=== PATIENT | female | born 1965 | race Caucasian/White ===

== ENCOUNTER → 2018-03-08 | Outpatient (REF) | payer OTHER, BC ==
[2018-03-08 18:42] LABS: ALBUMIN 3.7 GM/DL (3.2-5.2); ALBUMIN/GLOBULIN RATIO 1.06 (1.00-1.93); ALKALINE PHOSPHATASE 75 U/L (45-117); ALT/SGPT 23 U/L (12-78); ANION GAP 6 MEQ/L (8-16); AST/SGOT 19 U/L (7-37); BILIRUBIN,TOTAL 0.4 MG/DL (0.2-1.0); BLOOD UREA NITROGEN 16 MG/DL (7-18); CARBON DIOXIDE LEVEL 29 MEQ/L (21-32); CHLORIDE LEVEL 106 MEQ/L (98-107); CHOLESTEROL LEVEL 206 MG/DL (<200); CHOLESTEROL RISK RATIO 3.169 (<5); CREATININE FOR GFR 0.84 MG/DL (0.55-1.30); GLOMERULAR FILTRATION RATE > 60.0 (>51); GLUCOSE, FASTING 93 MG/DL (70-100); HDL CHOLESTEROL 65 MG/DL (>40); LDL CHOLESTEROL 116.2 MG/DL (<100); NON-HDL-C 141 MG/DL; POTASSIUM SERUM 4.4 MEQ/L (3.5-5.1); SODIUM LEVEL 141 MEQ/L (136-145); TOTAL PROTEIN 7.2 GM/DL (6.4-8.2); TRIGLYCERIDES LEVEL 124 MG/DL (<150)
== END ==
LOC: M LAB REF 16:37
DX: E78.5 Hyperlipidemia, unspecified (principal); I10 Essential (primary) hypertension
CPT/HCPCS: 80053

== ENCOUNTER → 2018-09-13 | Outpatient (CLI) | payer OTHER | LOC: M WHC 13:09 | DX: Z12.31 Encounter for screening mammogram for malignant neoplasm of breast (principal) | CPT/HCPCS: 77067 ==

== ENCOUNTER → 2018-09-13 | Outpatient (CLI) | payer OTHER | LOC: M WUC 15:09 | DX: M48.07 Spinal stenosis, lumbosacral region (principal) | CPT/HCPCS: 72110 ==

== ENCOUNTER → 2019-03-09 | Outpatient (CLI) | payer OTHER ==
[~2019-03-09] MED LIST: BENA25TA4 PO; BENADRYL PO; DEPA500T2 PO; DYAZCA PO; LIPI20TA PO; MAPA500T17 PO; TOPROL XL PO; TYLE325T5 PO
[2019-03-09 11:32] LABS: ALBUMIN 3.6 GM/DL (3.2-5.2); ALT/SGPT 20 U/L (12-78); BILIRUBIN,TOTAL 0.5 MG/DL (0.2-1.0); BLOOD UREA NITROGEN 14 MG/DL (7-18); CALCIUM LEVEL 9.3 MG/DL (8.5-10.1); CARBON DIOXIDE LEVEL 30 MEQ/L (21-32); CHLORIDE LEVEL 105 MEQ/L (98-107); CHOLESTEROL LEVEL 249 MG/DL (<200); GLOMERULAR FILTRATION RATE > 60.0 (>51); GLUCOSE, FASTING 94 MG/DL (70-100); HDL CHOLESTEROL 64 MG/DL (>40); LDL CHOLESTEROL 155 MG/DL (<100); NON-HDL-C 185 MG/DL; SODIUM LEVEL 140 MEQ/L (136-145); TOTAL PROTEIN 6.7 GM/DL (6.4-8.2); TRIGLYCERIDES LEVEL 148 MG/DL (<150)
== END ==
LOC: M LRY 07:42
PROVIDERS: ATTEND Internal Medicine
DX: E78.5 Hyperlipidemia, unspecified (principal)

== ENCOUNTER 2019-04-06 13:09 | Emergency (ER) | payer OTHER ==
[2019-04-06] MEDS ORDERED: SUDA240T2 PO (13:28)
[2019-04-06] MEDS ORDERED: CLAR10CA3 PO (13:28)
--- NOTE | 2019-04-06 14:22 | REP ---
Right wrist four views: There is no fracture or dislocation. Mineralization is normal. There is trapezial metacarpal osteoarthritis at the thumb base. Joint spaces are otherwise unremarkable. There are no calcifications or foreign bodies. 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 Otherwise, negative right wrist Electronically Signed by Chas Francois MD 04/06/2019 02:13 P
[2019-04-06] MEDS ORDERED: NAPR-837 PO (15:12)
[2019-04-06] MEDS ORDERED: ROBA500T PO (15:12)
[2019-04-06 15:20] VITALS: BP 168/94
== END 2019-04-06 15:28 | disposition home or self-care (01) ==
LOC: M ED 13:09
DX: M54.12 Radiculopathy, cervical region (principal); M19.041 Primary osteoarthritis, right hand; E78.5 Hyperlipidemia, unspecified; E73.9 Lactose intolerance, unspecified; Z87.891 Personal history of nicotine dependence; Z79.899 Other long term (current) drug therapy; Z91.040 Latex allergy status

== ENCOUNTER 2019-06-23 09:12 | Observation (INO) | payer OTHER ==
[~2019-06-23] VITALS: Ht 160 cm; Wt 72.3 kg
[~2019-06-23 09:12] MED LIST changes: +CLAR10CA3 PO; +NAPR-837 PO; +ROBA500T PO; +SUDA240T2 PO
[2019-06-23] MEDS ORDERED: AMLO5TAB6 PO (09:55)
[2019-06-23] MEDS ORDERED: ESCI20TA PO (09:55)
[2019-06-23] MEDS ORDERED: ATOR1TAB19 PO (09:55)
[2019-06-23 09:56] LABS: BASO % 0.4 % (0.0-1.0); EOS # 0.1 10^3/uL (0.0-0.50); EOS % 1.4 % (0.0-3.0); HEMATOCRIT 40.4 % (36.0-47.0); HEMOGLOBIN 13.2 g/dl (12.0-15.5); LYMPH # 1.8 10^3/uL (1.5-4.5); MEAN CORPUSCULAR HEMOGLOBIN 30.2 pg (27.0-33.0); MEAN CORPUSCULAR HGB CONC 32.7 g/dl (32.0-36.5); MEAN CORPUSCULAR VOLUME 92.4 fl (80.0-96.0); MONO # 0.6 10^3/uL (0.0-0.8); MONO % 11.3 % (0.0-5.0); NEUTROPHILS # 2.6 10^3/uL (1.8-7.7); NEUTROPHILS % 51.5 % (36.0-66.0); PLATELET COUNT, AUTOMATED 275 10^3/uL (150-450); RED BLOOD COUNT 4.37 10^6/uL (4.00-5.40); WHITE BLOOD COUNT 5.1 10^3/uL (4.0-10.0)
--- NOTE | 2019-06-23 09:56 | REP ---
Clinical: Seizures . Comparison: 02/17/2014 . Findings: The ventricles, sulci, and cisterns are normal in position and appearance. Maciel-white differentiation is maintained. Mild chronic periventricular leukomalacia is again noted. No acute intracranial hemorrhage, mass/mass effect, pathology or trauma/injury. No evidence for acute infarction. No extra-axial fluid collection. Calvarium is intact. Paranasal sinuses and mastoid air cells are clear. Impression: Mild age-related changes. No evidence for acute intracranial pathology or trauma/injury. Electronically Signed by Nima Downing MD 06/23/2019 09:47 A
[2019-06-23] MEDS ORDERED: KETOROLAC 30 MG/ML VIAL (J1885) IV ONE (10:00)
[2019-06-23] MEDS ORDERED: ISOVUE-370 76% 100ML VIAL (Q9967) As Ordered ONE (10:01)
--- NOTE | 2019-06-23 10:02 | REP ---
Clinical: Acute chest pain . Comparison: 02/17/2014 . Findings: The mediastinum and cardiac silhouette are stable and within normal limits for portable technique. The lung kessler are clear without acute consolidation, effusion, or pneumothorax. Skeletal structures are intact. Impression: No acute cardiopulmonary process appreciated. Electronically Signed by Nima Downing MD 06/23/2019 09:54 A
[2019-06-23 10:35] LABS: BLOOD UREA NITROGEN 17 MG/DL (7-18); CALCIUM LEVEL 8.5 MG/DL (8.5-10.1); CARBON DIOXIDE LEVEL 25 MEQ/L (21-32); CHLORIDE LEVEL 106 MEQ/L (98-107); CK-MB VALUE MASS 1.7 NG/ML (<3.6); CPK CREATINE PHOSPHOKINASE 165 U/L (26-192); GLOMERULAR FILTRATION RATE > 60.0 (>51); GLUCOSE, FASTING 96 MG/DL (70-100); MB/CK RELATIVE INDEX 1.03 (< OR =4); POTASSIUM SERUM 3.6 MEQ/L (3.5-5.1); SODIUM LEVEL 140 MEQ/L (136-145); TROPONIN I < 0.02 NG/ML (< 0.10)
--- NOTE | 2019-06-23 10:41 | REP ---
Clinical: Acute chest pain. Technique: Axial contrast enhanced images from the thoracic inlet to the upper abdomen using 100 ml Isovue 370 intravenous contrast material with coronal and sagittal re-formations. Findings: Satisfactory enhancement of the pulmonary vasculature is achieved and no filling defects are identified to suggest pulmonary embolus. Thoracic aorta is normal caliber without aneurysm or dissection. Heart and pericardium are normal. Bilateral lung kessler are well aerated and without acute pulmonary parenchymal consolidation or or effusion. Trace left basilar atelectasis/dependent changes noted. No nodule or mass lesion. No pneumothorax. No adenopathy. Impression: No evidence for pulmonary embolus. Trace left basilar atelectasis/dependent changes noted. Electronically Signed by Nima Downing MD 06/23/2019 10:32 A
[2019-06-23] MEDS ORDERED: IPRATROPIUM 0.5MG/ALBUTEROL 2.5MG INH SOL UD 3ML (DUONEB)(J7620) NEB ONE (11:00)
[2019-06-23 11:25] LABS: ABG BASE EXCESS 1.4 (-2.0-2.0); ABG O2 SATURATION 99.8 % (95.0-99.0); ABG PARTIAL PRESSURE CO2 41.1 mmHg (35.0-45.0); ABG PARTIAL PRESSURE O2 167.8 mmHg (75.0-100.0); ABG STANDARD HCO3 25.8 MEQ/L (22.0-26.0); ABG TOTAL CO2 27.3 MEQ/L (22.0-29.0); ABG pH (ARTERIAL) 7.419 UNITS (7.350-7.450)
[2019-06-23] MEDS ORDERED: CETI10TA8 PO (11:52)
[2019-06-23] MEDS ORDERED: [UNRECOGNIZED DRUG - REMARK] PO (11:52)
[2019-06-23] MEDS ORDERED: DIPH25CA PO (11:52)
[2019-06-23] MEDS ORDERED: QC A650T3 PO (11:52)
[2019-06-23] MEDS ORDERED: ACETAMINOPHEN TAB 650MG DOSE (2X325MG) PO PRN (12:30)
--- NOTE | 2019-06-23 12:59 | HPEPDOC ---
General Date of Admission 06/23/2019 Date of Service: Jun 23, 2019 Chief Complaint The patient is a 54-year-old female who presented to the emergency room after she was found to have a potential seizure-like episode after trying to get urgent care for chest pain History of Present Illness Patient is a 54-year-old female with a past medical history of hypertension, dyslipidemia and anxiety who presented to the emergency room brought in by EMS, because of a seizure-like episode. 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 Patient had reported that she began to experience left-sided chest pain that prompted her to get further evaluation. Her coworker had decided to take her to the urgent care center. During transport, patient complained of worsening pain and then had possibly lost consciousness and possibly experience the seizure-like episode. There was no stool or bladder incontinence, no tongue biting. Patient is still reporting some chest pain described as on the left side of her chest under her armpit 6/10, sharp, continuous, worse with deep inspiration and alleviated mildly with pain medications received in the emergency room. Patient reported that she may have experience some nausea and sweating at the t edwige of the event. Currently patient denies vomiting, abdominal pain, constipation, diarrhea, discomfort with urination, fevers or chills within the last 2 weeks. Patient denies any change to her weight or her appetite. Home Medications Scheduled Acetaminophen (Acetaminophen 8 Hour) 650 Mg Tablet.er, 650 MG PO BID, (Reported) Amlodipine Besylate (Amlodipine Besylate) 5 Mg Tablet, 5 MG PO QHS, (Reported) Atorvastatin Calcium (Atorvastatin Calcium) 10 Mg Tablet, 10 MG PO QHS, (R eported) Cetirizine HCl (Cetirizine HCl) 10 Mg Tablet, 10 MG PO DAILY, (Reported) Diphenhydramine HCl (Diphenhydramine HCl) 25 Mg Capsule, 25 MG PO QHS, (Reported) Escitalopram Oxalate (Escitalopram Oxalate) 20 Mg Tablet, 20 MG PO QHS, (Reported) Phenylephrine HCl (Sinus Decongestant) 10 Mg Tablet, 10 MG PO DAILY, (Reported) Allergies Coded Allergies: lactose (Verified Allergy, Unknown, 04/06/19) latex (Verified Allergy, Unknown, 04/06/19) Past Medical History Medical History HTN DLP Anxiety Surgical History Hysterectomy section 2 Family History - Mother with a history of diverticulitis - Father with history of congestive heart failure and unknown cancer Social History - Denies the use of illicit drugs; socially drinks alcohol; patient is an ex- smoker - Denies recent travel or sick contacts - Lives with at [place] - Occupation; 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 Review of Systems Other systems 10 point review of systems complete, all negative otherwise stated in HPI Vital Signs - Vitals: BP 155/99, HR 76, RR 16, Sat 99%NC2L, Temp 98.1F - General: Lying in bed, No acute distress, Speaking in full sentences, AAOx3 - HEENT: NC, AT, PERRLA, EOMI - CVS: RRR, +S1S2 - Lungs: Fair air entry bilaterally, No appreciable wheezing / rales / rhonchi - Chest: Tenderness on light palpation on left mid-axilla line - Abdomen: Soft, Non-distended, Non-tender - Extremities: No lower extremity edema, No calf tenderness - Neuro: No focal motor or sensory deficit; 5/5 strength at upper / lower extremities bilaterally - Skin: No visible rashes, no visible shingle-like lesions noted along chest wall Laboratory Data Labs 24H Laboratory Tests 2 06/23/19 09:41: Immature Granulocyte % (Auto) 0.4, White Blood Count 5.1, Red Blood Count 4.37, Hemoglobin 13.2, Hematocrit 40.4, Mean Corpuscular Volume 92.4, Mean Corpuscular Hemoglobin 30.2, Mean Corpuscular Hemoglobin Concent 32.7, Red Cell Distribution Width 12.3, Platelet Count 275, Neutrophils (%) (Auto) 51.5, Lymphocytes (%) (Auto) 35.0, Monocytes (%) (Auto) 11.3H, Eosinophils (%) (Auto) 1.4, Basophils (%) (Auto) 0.4, Neutrophils # (Auto) 2.6, Lymphocytes # (Auto) 1.8, Monocytes # (Auto) 0.6, Eosinophils # (Auto) 0.1, Basophils # (Auto) 0.0, Nucleated Red Blood Cells % (auto) 0.0, Anion Gap 9, Glomerular Filtration Rate > 60.0, Blood Urea Nitrogen 17, Creatinine 1.00, Sodium Level 140, Potassium Level 3.6, Chloride Level 106, Carbon Dioxide Level 25, Calcium Level 8.5, Total Creatine Kinase 165, Creatine Kinase MB 1.7, Creatine Kinase MB Relative Index 1.03, Troponin I < 0.02, Thyroid Stimulating Hormone (TSH) 0.970 06/23/19 11:12: Blood Gas Bicarbonate Standard 25.8, Arterial Blood pH 7.419, Arterial Blood Partial Pressure CO2 41.1, Arterial Blood Partial Pressure O2 167.8H, Arterial Blood Total CO2 27.3, Arterial Blood HCO3 26.0, Arterial Blood Base Excess 1.4, Arterial Blood Oxygen Saturation 99.8H CBC/BMP Laboratory Tests 06/23/19 09:41 Red Blood Count 4.37, Mean Corpuscular Volume 92.4, Mean Corpuscular Hemoglobin 30.2, Mean Corpuscular Hemoglobin Concent 32.7, Red Cell Distribution Width 12.3, Neutrophils (%) (Auto) 51.5, Lymphocytes (%) (Auto) 35.0, Monocytes (%) (Auto) 11.3 H, Eosinophils (%) (Auto) 1.4, Basophils (%) (Auto) 0.4, Neutrophils # (Auto) 2.6, Lymphocytes # (Auto) 1.8, Monocytes # (Auto) 0.6, Eosinophils # (Auto) 0.1, Basophils # (Auto) 0.0, Calcium Level 8.5, Total Creatine Kinase 165 Plan / VTE VTE Prophylaxis Ordered?: Yes Plan Plan Possible seizure-like episode - Patient has a history of pseudoseizures in January 2014 - She had received extensive workup at that point which was all negative - Patient has not been on any antiepileptic medications - CT had 06/23: Mild age-related changes. No evidence for acute intracranial pathology or trauma/injury. - Will get MRI and EEG of brain - Will start PT tomorrow AM Left sided chest wall pain - likely 2/2 musculoskeletal etiology - Patient describes atypical chest pain - Physical reveals point tenderness along left midaxilla line - Troponin, first set, negative - EKG without any ischemic changes - CTA chest. 06/23: No evidence for pulmonary embolus. Trace left basilar atelectasis/dependent changes noted. - Will continue to trend troponin - c/w Telemetry monitoring - c/w Pain control HTN - Elevated blood pressure well emergency room - Will continue to monitor, will resume home medications DLP - c/w Atorvastatin Anxiety - c/w Escitalopram DVT prophylaxis - Will start ROGE Veliz MD Jun 23, 2019 12:59
[2019-06-23 15:15] VITALS: BP 165/90
[2019-06-23 15:36] LABS: CK-MB VALUE MASS 1.1 NG/ML (<3.6); CPK CREATINE PHOSPHOKINASE 149 U/L (26-192); MB/CK RELATIVE INDEX 0.74 (< OR =4); TROPONIN I < 0.02 NG/ML (< 0.10)
[2019-06-23] MEDS: NS 1,000 ML IV SCH (16:26)
[2019-06-23] MEDS: ENOXAPARIN 40 MG/0.4 ML SYRINGE (J1650) SC SCH (16:26)
--- NOTE | 2019-06-23 18:50 | ECHO ---
DATE OF PROCEDURE: 06/23/2019 AGE: 54 GENDER: Female HEIGHT: 63 inches WEIGHT: 165 pounds BODY SURFACE AREA: 1.78 m2 PATIENT LOCATION: Inpatient, PCU, room 3219 REFERRING PHYSICIAN: Hernando Fernandez MD INDICATION: Syncope. 2-D MEASUREMENTS: RV: 3.6 cm LV: 4.3 cm Septum: 1.1 cm Posterior wall: 1.1 cm Aortic root: 3.7 cm LA: 3.5 cm LVEF: 75% DOPPLER MEASUREMENTS: AV: 1.29 m/s LVOT: 1.16 m/s LVOT diameter: 2.4 cm MV-E: 69, A: 95, EA ratio: 0.7 Early mitral deceleration time: 250 ms E prime: 6.9, A prime: 10.5, E/E prime ratio: 10 PCWP: 14 mmHg PV: 0.8 m/s Pulmonary artery acceleration time: 130 ms PASP: 24 mmHg IVC: 1.8 cm COMMENTS Normal sinus rhythm without intraventricular conduction disturbance. M-mode and two-dimensional echocardiography was performed with pulsed, continuous wave, color flow and tissue Doppler studies. Normal left ventricular size, wall thickness and hyperkinetic wall motion. Normal left atrial size with Doppler evidence suggesting a degree of impaired LV diastolic function and current estimated mean left atrial pressure upper limits of normal. Normal right heart chamber sizes, wall motion and estimated pulmonary arterial pressure. Normal IVC size and collapse against an elevated central venous pressure. Normal-appearing aortic valvular apparatus without functional abnormality. Normal aortic dimensions. Marginally thickened mitral valvular apparatus with adequate leaflet excursion, but subtle posterior systolic buckling of the anterior leaflet with mild posteriorly directed insufficiency. No apparent intracardiac mass or pericardial effusion. From the apical projections we could not see an interatrial defect but from the subcostal four-chamber projections we were able to demonstrate a patent foremen ovale with trace left to right intra-atrial shunting. Unable to detect a structural or functional abnormality that would account for the patient's syncopal spell.
[2019-06-23 20:00] VITALS: BP 149/86
[2019-06-23] MEDS ORDERED: ESCITALOPRAM OXALATE 10 MG TAB (LEXAPRO) PO SCH (21:00)
[2019-06-23] MEDS ORDERED: amLODIPine 5 MG TAB PO SCH (21:00)
[2019-06-23] MEDS ORDERED: ATORVASTATIN 10 MG TAB PO SCH (21:00)
[2019-06-23 21:06] VITALS: BP 149/86
[2019-06-23 21:36] LABS: CK-MB VALUE MASS 1.1 NG/ML (<3.6); CPK CREATINE PHOSPHOKINASE 139 U/L (26-192); MB/CK RELATIVE INDEX 0.79 (< OR =4); TROPONIN I < 0.02 NG/ML (< 0.10)
[2019-06-23 23:59] VITALS: BP 146/74
[2019-06-24 04:00] VITALS: BP 147/86
[2019-06-24 04:44] LABS: BASO % 0.4 % (0.0-1.0); EOS % 0.9 % (0.0-3.0); HEMATOCRIT 38.1 % (36.0-47.0); HEMOGLOBIN 12.5 g/dl (12.0-15.5); LYMPH % 44.2 % (24.0-44.0); MEAN CORPUSCULAR HEMOGLOBIN 30.3 pg (27.0-33.0); MEAN CORPUSCULAR HGB CONC 32.8 g/dl (32.0-36.5); MEAN CORPUSCULAR VOLUME 92.3 fl (80.0-96.0); MONO # 0.5 10^3/uL (0.0-0.8); MONO % 10.4 % (0.0-5.0); NEUTROPHILS % 43.7 % (36.0-66.0); PLATELET COUNT, AUTOMATED 264 10^3/uL (150-450); RED BLOOD COUNT 4.13 10^6/uL (4.00-5.40); WHITE BLOOD COUNT 4.5 10^3/uL (4.0-10.0)
[2019-06-24 05:08] LABS: BLOOD UREA NITROGEN 12 MG/DL (7-18); CALCIUM LEVEL 8.9 MG/DL (8.5-10.1); CARBON DIOXIDE LEVEL 32 MEQ/L (21-32); CHLORIDE LEVEL 105 MEQ/L (98-107); CREATININE FOR GFR 0.76 MG/DL (0.55-1.30); GLOMERULAR FILTRATION RATE > 60.0 (>51); GLUCOSE, FASTING 93 MG/DL (70-100); MAGNESIUM LEVEL 2.2 MG/DL (1.8-2.4); POTASSIUM SERUM 4.3 MEQ/L (3.5-5.1); SODIUM LEVEL 141 MEQ/L (136-145)
[2019-06-24] MEDS: NS 1,000 ML IV SCH (06:15)
[2019-06-24 08:00] VITALS: BP 144/84
[2019-06-24] MEDS: ENOXAPARIN 40 MG/0.4 ML SYRINGE (J1650) SC SCH ×2 (08:19→08:20)
--- NOTE | 2019-06-24 09:49 | REP ---
MRI BRAIN WITHOUT CONTRAST: HISTORY: Possible seizure. Left-sided head pain. Syncope. Comparison MRI study is from January 24, 2014. Comparison brain CT study June 23, 2019. TECHNIQUE: Axial and sagittal imaging planes are utilized for T1- and T2-weighted scans. Sequences include spin echo, fast spin echo, FLAIR, and diffusion weighted sequences. MRI FINDINGS: No bony calvarial lesion is seen. Craniocervical junction upper cervical cord are normal in appearance. There is no MR evidence of significant paranasal sinus disease. No intraorbital abnormality is seen. Lateral, third and fourth ventricles are normal in size and position. Diffusion weighted scan show no evidence to suggest acute ischemia. There is no evidence of intracranial mass lesion. There are multiple periventricular and subcortical white matter T2 hyperintensities on FLAIR and turbo spin echo T2-weighted images bilaterally in the supratentorial brain. These are nonspecific. They are felt to be unchanged from the comparison study January 24, 2014. They are most likely related to microvascular chronic ischemic changes. Demyelinating disease could have this appearance as well. There is no evidence of intracranial hemorrhage. IMPRESSION: Numerous foci of periventricular and subcortical white matter hyperintensity. These are nonspecific. Small vessel microvascular ischemic changes versus demyelinating disease. These findings are unchanged from January 24, 2014. No acute intracranial abnormality. Electronically Signed by Conrad Jerome MD 06/24/2019 10:15 A
--- NOTE | 2019-06-24 15:15 | DS.PDOC ---
Discharge Summary General Date of Admission Jun 23, 2019 at 09:13 Date of Discharge 06/24/2019 Discharge Summary PCP: John Mcmanus M.D PROCEDURES PERFORMED DURING STAY: Echocardiogram 06/23/2019 COMMENTS Normal sinus rhythm without intraventricular conduction disturbance. M-mode and two-dimensional echocardiography was performed with pulsed, continuous wave, color flow and tissue Doppler studies. Normal left ventricular size, wall thickness and hyperkinetic wall motion. Normal left atrial size with Doppler evidence suggesting a degree of impaired LV diastolic function and current estimated mean left atrial pressure upper limits of normal. Normal right heart chamber sizes, wall motion and estimated pulmonary arterial pressure. Normal IVC size and collapse against an elevated central venous pressure. Normal-appearing aortic valvular apparatus without functional abnormality. Normal aortic dimensions. Marginally thickened mitral valvular apparatus with adequate leaflet excursion, but subtle posterior systolic buckling of the anterior leaflet with mild posteriorly directed insufficiency. No apparent intracardiac mass or pericardial effusion. From the apical projections we could not see an interatrial defect but from the subcostal four-chamber projections we were able to demonstrate a patent foremen ovale with trace left to right intra-atrial shunting. Unable to detect a structural or functional abnormality that would account for the patient's syncopal spell. ADMITTING/DISCHARGE DIAGNOSES: Pseudoseizures Left sided chest wall pain - likely 2/2 musculoskeletal etiology HTN DLP Anxiety COMPLICATIONS/CHIEF COMPLAINT: Pre Syncope. HISTORY OF PRESENT ILLNESS/ HOSPITAL COURSE: Patient is a 54-year-old female with a past medical history of hypertension, dyslipidemia and anxiety who presented to the emergency room brought in by EMS, because of a seizure-like episode. 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 Patient had reported that she began to experience left-sided chest pain that prompted her to get further evaluation. Her coworker had decided to take her to the urgent care center. During transport, patient complained of worsening pain and then had possibly lost consciousness and possibly experiences the seizure-like episode. There was no stool or bladder incontinence, no tongue biting. Patient is still reporting some chest pain described as on the left side of her chest under her armpit 6/10, sharp, continuous, worse with deep inspiration and alleviated mildly with pain medications received in the emergency room. Patient reported that she may have experience some nausea and sweating at the time of the event. Currently patient denies vomiting, abdominal pain, constipation, diarrhea, and discomfort with urination, fevers or chills within the last 2 weeks. Patient denies any change to her weight or her appetite. While the patient was admitted she had multiple imaging done which was negative for any acute pathology. Multiple imaging and labs were obtained during her stay. All were within normal limits. On the day of discharge patient was stable and was eager to go home. We advised her to follow- up with her primary care provider on Thursday prior to returning to work. She had complaints or objections to recommendations.. DISCHARGE MEDICATIONS: Please see below. ALLERGIES: Please see below. PHYSICAL EXAMINATION ON DISCHARGE: VITAL SIGNS: Please see below. GENERAL: Pleasant 54-year-old female sitting up on her bed, does not appear in acute distress, appropriately answering questions, alert and oriented 3 HEENT: Atraumatic normocephalic pupils equal round and reactive CARDIOVASCULAR EXAMINATION: Regular Rate and rhythm no audible murmurs rubs or gallops RESPIRATORY EXAMINATION: Clear to auscultate bilaterally no audible wheezing rhonchi as Rales ABDOMINAL EXAMINATION: Positive bowel sounds in all 4 quadrants nondistended nontender EXTREMITIES: No lower extremity edema or calf tenderness SKIN: No visible skin breakdown or rashes NEUROLOGICAL EXAMINATION: Extraocular movements are intact cranial nerves II through XII are intact, s upper and lower extremity bilaterally: 5 / 5 strength and normal sensation. LABORATORY DATA: Please see below. IMAGIN06/23/[address] Impression: Mild age-related changes. No evidence for acute intracranial pathology or trauma/injury. Chest x-ray Impression: No acute cardiopulmonary process appreciated. Angiography CT Chest Impression: No evidence for pulmonary embolus. Trace left basilar atelectasis/dependent changes noted. Brain MRI IMPRESSION: Numerous foci of periventricular and subcortical white matter hyperintensity. These are nonspecific. Small vessel microvascular ischemic changes versus demyelinating disease. These findings are unchanged from January 24, 2014. No acute intracranial abnormality. ACTIVITY: As tolerated DIET: Regular DISPOSITION: Home, Self-Care. DISCHARGE INSTRUCTIONS: 1. 1. f.u with your pcp by thursday. 2. continue medication as prescribed. 3. if symptoms return or worsen please return to the ER. DISCHARGE CONDITION: Stable. TIME SPENT ON DISCHARGE: Greater than 35 minutes. Vital Signs/I&Os Vital Signs Date Time Temp Pulse Resp B/P (MAP) Pulse Ox O2 Delivery O2 Flow Rate FiO2 8/2/19 08:00 97.8 69 18 144/84 (104) 99 06/23/19 15:00 Nasal Cannula 1.0 I&O- Last 24 Hours up to 6 AM 06/24/19 06:00 Intake Total 1920 ml Output Total 1425 ml Balance 495 ml Laboratory Data Labs 24H Laboratory Tests 2 06/23/19 14:57: Total Creatine Kinase 149, Creatine Kinase MB 1.1, Creatine Kinase MB Relative Index 0.74, Troponin I < 0.02 06/23/19 21:01: Total Creatine Kinase 139, Creatine Kinase MB 1.1, Creatine Kinase MB Relative Index 0.79, Troponin I < 0.02 06/24/19 04:15: Immature Granulocyte % (Auto) 0.4, White Blood Count 4.5, Red Blood Count 4.13, Hemoglobin 12.5, Hematocrit 38.1, Mean Corpuscular Volume 92.3, Mean Corpuscular Hemoglobin 30.3, Mean Corpuscular Hemoglobin Concent 32.8, Red Cell Distribution Width 12.4, Platelet Count 264, Neutrophils (%) (Auto) 43.7, Lymphocytes (%) (Auto) 44.2H, Monocytes (%) (Auto) 10.4H, Eosinophils (%) (Auto) 0.9, Basophils (%) (Auto) 0.4, Neutrophils # (Auto) 2.0, Lymphocytes # (Auto) 2.0, Monocytes # (Auto) 0.5, Eosinophils # (Auto) 0.0, Basophils # (Auto) 0.0, Nucleated Red Blood Cells % (auto) 0.0, Anion Gap 4L, Glomerular Filtration Rate > 60.0, Blood Urea Nitrogen 12, Creatinine 0.76, Sodium Level 141, Potassium Level 4.3, Chloride Level 105, Carbon Dioxide Level 32, Calcium Level 8.9, Magnesium Level 2.2 CBC/BMP Laboratory Tests 06/24/19 04:15 Red Blood Count 4.13, Mean Corpuscular Volume 92.3, Mean Corpuscular Hemoglobin 30.3, Mean Corpuscular Hemoglobin Concent 32.8, Red Cell Distribution Width 12.4, Neutrophils (%) (Auto) 43.7, Lymphocytes (%) (Auto) 44.2 H, Monocytes (%) (Auto) 10.4 H, Eosinophils (%) (Auto) 0.9, Basophils (%) (Auto) 0.4, Neutrophils # (Auto) 2.0, Lymphocytes # (Auto) 2.0, Monocytes # (Auto) 0.5, Eosinophils # (Auto) 0.0, Basophils # (Auto) 0.0, Calcium Level 8.9 Discharge Medications Scheduled Acetaminophen (Acetaminophen 8 Hour) 650 Mg Tablet.er, 650 MG PO BID, (Reported) Amlodipine Besylate (Amlodipine Besylate) 5 Mg Tablet, 5 MG PO QHS, (Reported) Atorvastatin Calcium (Atorvastatin Calcium) 10 Mg Tablet, 10 MG PO QHS, (R eported) Cetirizine HCl (Cetirizine HCl) 10 Mg Tablet, 10 MG PO DAILY, (Reported) Diphenhydramine HCl (Diphenhydramine HCl) 25 Mg Capsule, 25 MG PO QHS, (Reported) Escitalopram Oxalate (Escitalopram Oxalate) 20 Mg Tablet, 20 MG PO QHS, (Reported) Phenylephrine HCl (Sinus Decongestant) 10 Mg Tablet, 10 MG PO DAILY, (Reported) Allergies Coded Allergies: latex (Verified Allergy, Mild, RASH & ITCHING FROM LATEX EXPOSURE PER PT, 06/23/19) lactose (Verified Allergy, Unknown, 04/06/19) GME ATTESTATION GME ATTESTATION My faculty preceptor for this patient encounter was physically present during the encounter and was fully available. All aspects of the patient interview, examination, medical decision making process, and medical care plan development were reviewed and approved by the faculty preceptor. The faculty preceptor is aware and concurs with the plan as stated in the body of this note and will attest to such by his/her cosignature. ATTENDING NOTE I, Hernando Powell, have independently examined this patient and performed my own physical exam, as well as reviewed the documentation and edited where necessary. I have discussed in detail with the resident / student the findings and plan of treatment as documented by the resident / student and edited their note. I agree with their findings and treatment plan and have edited their documentation. I will continue to follow the patient during this hospital stay. Time spent on discharge 35 minutes ELVIA SAHA DO Jun 24, 2019 15:15 HERNANDO POWELL MD Jun 24, 2019 15:40
--- NOTE | 2019-06-24 21:46 | ECGEPIP ---
[facility] - ED Test Date: 2019-06-23 Pat Name: TRACI OVALLE Department: Room: [place] [address] Gender: Female Education Intern: DENI : 1965 Requested By: Sb Abrams Order Number: [id number] Reading MD: Sb Caicedo Measurements Intervals [place] Rate: 83 P: 62 MA: 173 QRS: 53 QRSD: 102 T: 10 QT: 385 QTc: 454 Interpretive Statements SINUS RHYTHM NONSPECIFIC ST & T-WAVE ABNORMALITY NO PRIORS FOR COMPARISON Electronically Signed on 06-24-2019 21:45:43 EDT by Sb Caicedo
== END 2019-06-24 12:12 | disposition home or self-care (01) ==
LOC: M ED 09:12 → EDBD 09:12 → M ED INP 09:13 → M PCU 15:17
PROVIDERS: ADMIT Internal Medicine; ATTEND Internal Medicine
DX: G40.89 Other seizures (principal); R07.89 Other chest pain; I10 Essential (primary) hypertension; E78.49 Other hyperlipidemia; F41.9 Anxiety disorder, unspecified; Z87.891 Personal history of nicotine dependence; Z91.040 Latex allergy status; E73.9 Lactose intolerance, unspecified; Z79.899 Other long term (current) drug therapy
CPT/HCPCS: 36415; 36600; 70450; 70551; 71045; 71275; 80048; 82550; 82553; 82803; 83735; 84443; 85025; 93005; 93041; 93306; 94640; 96361; 96374; 99285; J1650; J1885; Q9967

== ENCOUNTER → 2019-08-25 | Outpatient (CLI) | payer OTHER ==
[~2019-08-25] MED LIST changes: +AMLO5TAB6 PO; +ATOR1TAB19 PO; +CETI10TA8 PO; +DIPH25CA32 PO; +ESCI20TA PO; +QC A650T3 PO; +[UNRECOGNIZED DRUG - REMARK] PO
--- NOTE | 2019-08-25 13:19 | REP ---
RENAL ULTRASOUND WITH DUPLEX DOPPLER RENAL ARTERY EVALUATION: Real-time sonographic evaluation of the kidneys performed and demonstrates both kidney to be normal in size and echotexture, right kidney meauring 11.7 x 5.5 x 5.1 cm and left kidney 10.6 x 5.2 x 4.7 cm. There is no hydronephrosis, renal mass, or nephrolithiasis. Ureteral jets are not visualized in the urinary bladder with Doppler color evaluation. Real-time sonographic and duplex Doppler interrogation of the renal arteries is performed bilaterally. Peak systolic velocity of the abdominal aorta at the level of the renal arteries is 72.8 cm/s. Peak systolic velocity of the main right renal artery is 122 cm/s, renal to aortic ratio 1.7. Resistive indices are measured in the upper, middle, and lower third of the right kidney and range between 0.54-0.63. Acceleration times range between 0.03-0.05. Peak systolic velocity in the main left renal artery is 89.2 cm/s, renal to aortic ratio 1.2. Resistive indices left kidney range between 0.52-0.62. Acceleration times range between 0.02-0.04. IMPRESSION: No compelling duplex Doppler sonographic evidence of significant renal artery stenosis. Electronically Signed by Chas Maciel MD 08/25/2019 05:55 P
== END ==
LOC: M RAD 07:28
PROVIDERS: ATTEND Internal Medicine Cardiovascular Disease
DX: I10 Essential (primary) hypertension (principal)

== ENCOUNTER → 2019-10-04 | Outpatient (REF) | payer OTHER ==
[2019-10-04 14:27] LABS: BASO % 0.7 % (0.0-1.0); EOS # 0.1 10^3/uL (0.0-0.5); HEMATOCRIT 40.6 % (36.0-47.0); HEMOGLOBIN 12.6 g/dl (12.0-15.5); LYMPH # 1.6 10^3/uL (1.5-5.0); LYMPH % 27.5 % (24.0-44.0); MEAN CORPUSCULAR HEMOGLOBIN 29.2 pg (27.0-33.0); MONO # 0.6 10^3/uL (0.0-0.8); MONO % 9.2 % (0.0-5.0); NEUTROPHILS # 3.7 10^3/uL (1.5-8.5); NEUTROPHILS % 61.3 % (36.0-66.0); PLATELET COUNT, AUTOMATED 313 10^3/uL (150-450); RED BLOOD COUNT 4.32 10^6/uL (4.00-5.40)
[2019-10-04 14:38] LABS: ALBUMIN 3.5 GM/DL (3.2-5.2); ALT/SGPT 23 U/L (12-78); BILIRUBIN,TOTAL 0.4 MG/DL (0.2-1.0); BLOOD UREA NITROGEN 21 MG/DL (7-18); CALCIUM LEVEL 9.4 MG/DL (8.5-10.1); CARBON DIOXIDE LEVEL 31 MEQ/L (21-32); CHLORIDE LEVEL 106 MEQ/L (98-107); CREATININE FOR GFR 0.86 MG/DL (0.55-1.30); FREE T4 0.88 NG/DL (0.76-1.46); GLOMERULAR FILTRATION RATE > 60.0 (>51); GLUCOSE, FASTING 95 MG/DL (70-100); POTASSIUM SERUM 4.6 MEQ/L (3.5-5.1); RHEUMATOID FACTOR QUANT < 10.0 IU/ML (<15.0); SODIUM LEVEL 141 MEQ/L (136-145); THYROID STIMULATING HORMONE 0.892 uIU/ML (0.358-3.740); TOTAL PROTEIN 6.9 GM/DL (6.4-8.2); VITAMIN B12 LEVEL 389 PG/ML
[2019-10-04 14:39] LABS: FOLATE > 24.0 NG/ML
[2019-10-04 14:46] LABS: HEMOGLOBIN A1c 5.9 %
[2019-10-04 15:11] LABS: ERYTHROCYTE SEDIMENTATION RATE 31 mm/hr (0-30)
[2019-10-06 11:10] LABS: ALBUMIN 3.99 GM/DL (3.29-5.55); ALBUMIN % 57.8 % (55.8-66.1); ALPHA-1-GLOBULIN % 5.1 % (2.9-4.9); ALPHA-1-GLOBULINS 0.35 GM/DL (0.17-0.41); ALPHA-2-GLOBULINS 0.76 GM/DL (0.42-0.99); BETA-1-GLOBULINS 0.46 GM/DL (0.28-0.60); BETA-1-GLOBULINS % 6.6 % (4.7-7.2); BETA-2-GLOBULINS 0.39 GM/DL (0.19-0.55); BETA-2-GLOBULINS % 5.7 % (3.2-6.5); GAMMA GLOBULIN % 13.8 % (11.1-18.8)
[2019-10-06 11:11] LABS: GAMMA GLOBULINS 0.95 GM/DL (0.65-1.58)
== END ==
LOC: M LABNEURO 10:48
PROVIDERS: ATTEND Psychiatry & Neurology Neurology
DX: R20.9 Unspecified disturbances of skin sensation (principal); E11.9 Type 2 diabetes mellitus without complications; G62.9 Polyneuropathy, unspecified; E07.9 Disorder of thyroid, unspecified

== ENCOUNTER → 2020-01-04 | Outpatient (CLI) | payer OTHER ==
--- NOTE | 2020-01-04 19:02 | REP ---
RIGHT HAND, FIVE VIEWS: Five views of the right hand are performed. There is no acute fracture or dislocation. There is mild narrowing between the scaphoid and trapezium. There is moderate narrowing, subchondral sclerosis and spurring between the trapezium and base of first metacarpal. There is mild diffuse narrowing of the 2nd through 4th metacarpal phalangeal joints with mild spurring of the head of the second metacarpal. There is mild diffuse narrowing of the 2nd through 5th proximal and distal interphalangeal joints, with mild spurring of the 2nd middle and distal phalanges and 3rd distal phalanx. IMPRESSION: Degenerative changes without fracture or dislocation. Electronically Signed by Chas Maciel MD 01/04/2020 07:32 P
== END ==
LOC: M LRY 17:14
PROVIDERS: ATTEND Nurse Practitioner Family
DX: S69.91XA Unspecified injury of right wrist, hand and finger(s), initial encounter (principal); X58.XXXA Exposure to other specified factors, initial encounter; Y92.89 Other specified places as the place of occurrence of the external cause

== ENCOUNTER → 2020-01-24 | Outpatient (REF) | payer OTHER ==
[2020-01-27 14:07] LABS: ANTI DS-DNA AB Negative (Negative); CYCLIC CITRULLINATED PEPTIDE 23 units (0-19)
== END ==
LOC: M SFHCRHEU 07:41
PROVIDERS: ATTEND Internal Medicine
DX: R76.8 Other specified abnormal immunological findings in serum (principal); R19.7 Diarrhea, unspecified

== ENCOUNTER → 2020-01-24 | Outpatient (CLI) | payer OTHER ==
--- NOTE | 2020-01-24 09:35 | REP ---
BILATERAL SHOULDERS: Three views of each shoulder performed and demonstrate no fracture, dislocation, or intrinsic bone disease. No significant arthritic change is seen bilaterally. IMPRESSION: Negative bilateral shoulder series. Electronically Signed by Chas Maciel MD 01/24/2020 07:49 P
--- NOTE | 2020-01-24 09:44 | REP ---
Left hand series: Four views. History: Polyarthralgia. Findings: There is diffuse osteopenia. Advanced osteoarthritis is seen at the first carpometacarpal articulation and there are osteoarthritic spurs at the IP joint of the thumb as well as at the DIP joints of the index, long, ring, and small fingers. Mild spurring is seen at the PIP joints of all four fingers. Impression: Diffuse osteopenia. Osteoarthritic changes as noted above. These are most pronounced at the first carpometacarpal articulation where there is sclerosis, joint space narrowing, spur formation, and accessory ossicle. Electronically Signed by Conrad Jerome MD 01/24/2020 05:54 P
== END ==
LOC: M LRY 07:42
PROVIDERS: ATTEND Internal Medicine
DX: M25.50 Pain in unspecified joint (principal); M85.842 Other specified disorders of bone density and structure, left hand; M19.042 Primary osteoarthritis, left hand

== ENCOUNTER → 2020-05-14 | Outpatient (CLI) | payer OTHER ==
[~2020-05-14] MED LIST changes: +AMLO1TAB24 PO; -AMLO5TAB6 PO
== END ==
LOC: M LABSMTC 12:23
PROVIDERS: ATTEND Orthopaedic Surgery
DX: Z03.818 Encounter for observation for suspected exposure to other biological agents ruled out (principal); Z11.59 Encounter for screening for other viral diseases

== ENCOUNTER → 2020-05-30 | Outpatient (CLI) | payer OTHER ==
[2020-05-30 12:41] LABS: BASO % 0.5 % (0.0-1.0); EOS # 0.1 10^3/uL (0.0-0.5); EOS % 1.3 % (0.0-3.0); HEMATOCRIT 38.4 % (36.0-47.0); HEMOGLOBIN 12.2 g/dl (12.0-15.5); LYMPH # 1.8 10^3/uL (1.5-5.0); LYMPH % 32.5 % (24.0-44.0); MEAN CORPUSCULAR HGB CONC 31.8 g/dl (32.0-36.5); MEAN CORPUSCULAR VOLUME 91.2 fl (80.0-96.0); MONO # 0.5 10^3/uL (0.0-0.8); NEUTROPHILS # 3.1 10^3/uL (1.5-8.5); NEUTROPHILS % 56.3 % (36.0-66.0); PLATELET COUNT, AUTOMATED 286 10^3/uL (150-450); RED BLOOD COUNT 4.21 10^6/uL (4.00-5.40); WHITE BLOOD COUNT 5.5 10^3/uL (4.0-10.0)
[2020-05-30 13:12] LABS: ALBUMIN 3.5 GM/DL (3.2-5.2); ALT/SGPT 24 U/L (12-78); BILIRUBIN,TOTAL 0.6 MG/DL (0.2-1.0); BLOOD UREA NITROGEN 17 MG/DL (7-18); C REACTIVE PROTEIN QUANTITATIV < 0.30 MG/DL (0.00-0.30); CALCIUM LEVEL 9.1 MG/DL (8.5-10.1); CARBON DIOXIDE LEVEL 31 MEQ/L (21-32); CHLORIDE LEVEL 108 MEQ/L (98-107); CHOLESTEROL LEVEL 208 MG/DL (<200); GLOMERULAR FILTRATION RATE > 60.0 (>51); GLUCOSE, FASTING 98 MG/DL (70-100); HDL CHOLESTEROL 52 MG/DL (>40); LDL CHOLESTEROL 128 MG/DL (<100); NON-HDL-C 156 MG/DL; POTASSIUM SERUM 4.6 MEQ/L (3.5-5.1); SODIUM LEVEL 140 MEQ/L (136-145); TOTAL PROTEIN 7.2 GM/DL (6.4-8.2); TRIGLYCERIDES LEVEL 141 MG/DL (<150)
== END ==
LOC: M WUC 10:14
PROVIDERS: ATTEND Internal Medicine
DX: M79.7 Fibromyalgia (principal); I10 Essential (primary) hypertension

== ENCOUNTER → 2020-08-26 | Outpatient (CLI) | payer OTHER | LOC: M LABSMTC 08:44 | PROVIDERS: ATTEND Anesthesiology | DX: Z01.812 Encounter for preprocedural laboratory examination (principal); Z20.828 Contact with and (suspected) exposure to other viral communicable diseases | CPT/HCPCS: C9803; U0003 ==

== ENCOUNTER 2020-08-31 09:13 | Day surgery (SDC) | payer OTHER ==
[~2020-08-31] VITALS: Ht 162.6 cm; Wt 73.7 kg
[~2020-08-31 09:13] MED LIST changes: +NS 1,000 ML IV ONE
[2020-08-31] MEDS ORDERED: fentaNYL 100 MCG/2 ML INJECTION (J3010) As Ordered ONE (10:20)
[2020-08-31] MEDS ORDERED: propofoL 200 MG/20 ML VIAL As Ordered ONE (10:35)
[2020-08-31] MEDS ORDERED: LIDOCAINE 2% 100MG/5ML SDV (FOR ANES.) As Ordered ONE (10:35)
--- NOTE | 2020-08-31 10:41 | ROOR ---
Patient Name: Eula March Procedure Date: 08/31/2020 10:19 AM Date of : 1965 Age: 55 Room: [facility] Gender: Female Note Status: Finalized Procedure: Colonoscopy Indications: Suspected irritable bowel syndrome, Irritable bowel syndrome with diarrhea, Irritable bowel syndrome with constipation Providers: Iker SOUZA MD Referring MD: MADDY PAREDES MD Requesting Provider: Medicines: Monitored Anesthesia Care Complications: No immediate complications. Procedure: Pre-Anesthesia Assessment: - The heart rate, respiratory rate, oxygen saturations, blood pressure, adequacy of pulmonary ventilation, and response to care were monitored throughout the procedure. The Colonoscope was introduced through the anus and advanced to 10 cm into the ileum. The colonoscopy was performed without difficulty. The patient tolerated the procedure well. The quality of the bowel preparation was good. Findings: The perianal and digital rectal examinations were normal. Small Internal Hemorrhoids. The entire examined colon appeared normal on direct and retroflexion views. The terminal ileum appeared normal. Biopsies for histology were taken with a cold forceps for evaluation of microscopic colitis. Impression: - Small Internal Hemorrhoids. - The entire colon is normal on direct and retroflexion views. - The examined portion of the ileum was normal. - Biopsies were taken with a cold forceps for evaluation of microscopic colitis. Recommendation: - Continue present medications. - Await pathology results. - Telephone endoscopist for pathology results in 2 weeks. Iker Souza MD Iker SOUZA MD 08/31/2020 10:40:51 AM Electronically signed by Iker SOUZA MD Number of Addenda: 0 Note Initiated On: 08/31/2020 10:19 AM Estimated Blood Loss: Estimated blood loss: none.
[2020-08-31 11:25] VITALS: BP 139/79
== END 2020-08-31 11:40 | disposition home or self-care (01) ==
LOC: M OPP 09:13
PROVIDERS: ATTEND Internal Medicine Gastroenterology
DX: K58.0 Irritable bowel syndrome with diarrhea (principal); K58.1 Irritable bowel syndrome with constipation; R10.9 Unspecified abdominal pain; K64.8 Other hemorrhoids; Z79.899 Other long term (current) drug therapy; Z91.018 Allergy to other foods; Z91.040 Latex allergy status
CPT/HCPCS: 45380; 88305; J3010

== ENCOUNTER → 2020-09-25 | Outpatient (CLI) | payer OTHER ==
[~2020-09-25] MED LIST changes: -NS 1,000 ML IV ONE
[2020-09-25 17:17] LABS: C REACTIVE PROTEIN QUANTITATIV 0.31 MG/DL (0.00-0.30); RHEUMATOID FACTOR QUANT < 10.0 IU/ML (<15.0)
[2020-09-25 17:26] LABS: BASO % 0.5 % (0.0-1.0); EOS % 0.7 % (0.0-3.0); HEMATOCRIT 39.2 % (36.0-47.0); HEMOGLOBIN 12.5 g/dl (12.0-15.5); LYMPH # 1.9 10^3/uL (1.5-5.0); LYMPH % 32.2 % (24.0-44.0); MEAN CORPUSCULAR HEMOGLOBIN 29.3 pg (27.0-33.0); MEAN CORPUSCULAR HGB CONC 31.9 g/dl (32.0-36.5); MEAN CORPUSCULAR VOLUME 91.8 fl (80.0-96.0); MONO # 0.5 10^3/uL (0.0-0.8); MONO % 8.8 % (0.0-5.0); NEUTROPHILS # 3.5 10^3/uL (1.5-8.5); NEUTROPHILS % 57.5 % (36.0-66.0); PLATELET COUNT, AUTOMATED 333 10^3/uL (150-450); RED BLOOD COUNT 4.27 10^6/uL (4.00-5.40)
[2020-09-25 19:21] LABS: ERYTHROCYTE SEDIMENTATION RATE 41 mm/hr (0-30)
[2020-09-27 16:08] LABS: ANTI DOUBLE STRAND-DNA AB 12 IU/mL (0-9); ANTINUCLEAR ANTIBODIES DIRECT Positive (Negative); Lyme Disease IgG/IgM Antibodie <0.91 ISR (0.00-0.90); Lyme Disease IgM Ab Quantitati <0.80 index (0.00-0.79); RNP ANTIBODIES <0.2 AI (0.0-0.9); SJOGREN'S ANTI SS-A <0.2 AI (0.0-0.9); SJOGREN'S ANTI SS-B <0.2 AI (0.0-0.9); SMITH ANTIBODIES <0.2 AI (0.0-0.9)
== END ==
LOC: M WUC 12:19
PROVIDERS: ATTEND Orthopaedic Surgery
DX: Z47.89 Encounter for other orthopedic aftercare (principal)

== ENCOUNTER → 2021-04-02 | Outpatient (CLI) | payer OTHER ==
[~2021-04-02] MED LIST changes: -ESCI20TA PO; +ESCI20TA16 PO
--- NOTE | 2021-04-02 13:00 | REPMRS ---
Patient History The patient states she has not had a clinical breast exam in over a year. No known family history of cancer. No Hormone Replacement Therapy Patient states no breast complaints today. Patient has signed MRS History Sheet. Digital Woman Screen Mammo: April 02, 2021 - Exam #: [id number] Bilateral CC and MLO view(s) were taken. Technologist: Jannette Nickerson, Technologist Prior study comparison: September 13, 2018, bilateral digital woman screen mammo performed at [facility] [place]. April 07, 2017, left breast digital mammo diagnostic unilateral, performed at [facility]. FINDINGS: There are scattered fibroglandular densities. Screening. Digital screening (2D) mammography was performed bilaterally in the CC and MLO projections. Additionally, breast tomosynthesis (3D mammography) was performed bilaterally in the CC and MLO projections. Todays exam was compared to the prior exams. By history, the patient has no complaints of a palpable breast abnormality or other significant breast complaints. The breasts are unchanged in size and shape. There are no santo-soft tissue densities or spiculated masses. There is no internal architectural distortion. Once again, stable benign appearing calcifications are seen.There are no suspicious santo-calcific clusters. Skin thickening or nipple retraction is not present. IMPRESSION: BI-RADS Category 2- Benign Findings. There is no evidence of malignant alteration of the breasts. Followup examination recommended in one year. The Volpara volumetric breast density category is B, there are scattered areas of fibroglandular density. This mammogram was read with the assistance of [employer],an FDA approved computer aided detection system for mammography. The lifetime Tyrer-Cuzick score is 4.5% Negative x-ray reports should not delay surgical consultation if a dominant or clinically suspicious mass is present. Not all breast cancers can be identified by mammography. Therefore, we recommend that you continue to perform regular breast self-examination and physical examination and then promptly contact your physician of any concerns or changes. Adenosis and dense breasts may obscure an underlying neoplasm. Assessment: BI-RADS/ACR category 2 mammogram. Benign Findings. Recommendation Routine screening mammogram of both breasts in 1 year. Electronically Signed By: Connor Mcclain DO 04/02/21 [id number]
== END ==
LOC: M WHC 11:53
PROVIDERS: ATTEND Internal Medicine
DX: Z12.31 Encounter for screening mammogram for malignant neoplasm of breast (principal)

== ENCOUNTER → 2021-07-01 | Outpatient (CLI) | payer OTHER ==
[~2021-07-01] MED LIST changes: +CETI-25 PO; -CETI10TA8 PO
== END ==
LOC: M RAD 07:57
PROVIDERS: ATTEND Internal Medicine
DX: R10.11 Right upper quadrant pain (principal)

== ENCOUNTER → 2021-07-16 | Outpatient (CLI) | payer OTHER ==
[~2021-07-16] MED LIST changes: -CETI-25 PO; +CETI10TA8 PO
--- NOTE | 2021-07-16 11:56 | REP ---
INDICATION: Assess stenosis COMPARISON: None TECHNIQUE: Carotid ultrasonography was performed bilaterally FINDINGS: Right: CCA systolic: 76.6 centimeters/second CCA diastolic: 15.9 centimeters/second ICA systolic: 63.5 centimeters/second ICA diastolic: 25.5 centimeters/second ICA CCA ratio: 0.83 Left: CCA systolic: 89.7 centimeters/second CCA diastolic: 26.6 centimeters/second ICA systolic: 74.4 centimeters/second ICA diastolic: 33.4 centimeters/second ICA CCA ratio: 0.83 Vertebral artery: Right: Antegrade flow left: Antegrade flow IMPRESSION: According to the SRU criteria the examination is within normal limits. <Electronically signed by Connor Mcclain > 07/16/21 [id number]
== END ==
LOC: M RAD 10:55
PROVIDERS: ATTEND Physician Assistant
DX: R55 Syncope and collapse (principal)

== ENCOUNTER → 2022-07-02 | Outpatient (CLI) | payer OTHER ==
[~2022-07-02] MED LIST changes: +CETI-25 PO; -CETI10TA8 PO
== END ==
LOC: M WHC 11:52
PROVIDERS: ATTEND Internal Medicine
DX: Z12.31 Encounter for screening mammogram for malignant neoplasm of breast (principal)

== ENCOUNTER → 2022-07-25 | Outpatient (CLI) | payer OTHER ==
[2022-07-25 18:25] LABS: BASO % 0.5 % (0.0-1.0); EOS # 0.1 10^3/uL (0.0-0.5); EOS % 1.7 % (0.0-3.0); HEMOGLOBIN 11.4 g/dl (12.0-15.5); LYMPH # 1.7 10^3/uL (1.5-5.0); LYMPH % 27.7 % (24.0-44.0); MEAN CORPUSCULAR HGB CONC 30.8 g/dl (32.0-36.5); MEAN CORPUSCULAR VOLUME 90.9 fl (80.0-96.0); MONO # 0.5 10^3/uL (0.0-0.8); MONO % 7.8 % (2.0-8.0); NEUTROPHILS # 3.7 10^3/uL (1.5-8.5); NEUTROPHILS % 61.8 % (36.0-66.0); PLATELET COUNT, AUTOMATED 273 10^3/uL (150-450); RED BLOOD COUNT 4.07 10^6/uL (4.00-5.40)
[2022-07-25 19:07] LABS: C REACTIVE PROTEIN QUANTITATIV < 0.30 MG/DL (0.00-0.30); RHEUMATOID FACTOR QUANT < 10.0 IU/ML (<15.0)
[2022-07-25 19:31] LABS: ERYTHROCYTE SEDIMENTATION RATE 38 mm/hr (0-30)
[2022-07-29 14:07] LABS: ANTI DOUBLE STRAND-DNA AB 12 IU/mL (0-9); ANTINUCLEAR ANTIBODIES DIRECT Positive (Negative); RNP ANTIBODIES 0.3 AI (0.0-0.9); SJOGREN'S ANTI SS-A <0.2 AI (0.0-0.9); SJOGREN'S ANTI SS-B <0.2 AI (0.0-0.9); SMITH ANTIBODIES <0.2 AI (0.0-0.9)
== END ==
LOC: M WUC 10:43
PROVIDERS: ATTEND Orthopaedic Surgery
DX: M19.012 Primary osteoarthritis, left shoulder (principal)

== ENCOUNTER → 2022-12-19 | Outpatient (CLI) | payer OTHER ==
[~2022-12-19] MED LIST changes: +DIPH-435 PO; -DIPH25CA32 PO
[2022-12-19 13:42] LABS: ALBUMIN 3.7 G/DL (3.2-5.2); ALKALINE PHOSPHATASE 72 U/L (46-116); ALT/SGPT 18 U/L (7.0-40); AST/SGOT 18 U/L (<34); BILIRUBIN,TOTAL 0.6 MG/DL (0.3-1.2); BLOOD UREA NITROGEN 16 MG/DL (9-23); CALCIUM LEVEL 9.3 MG/DL (8.5-10.1); CARBON DIOXIDE LEVEL 30 MMOL/L (20-31); CHLORIDE LEVEL 105 MMOL/L (98-107); CHOLESTEROL LEVEL 194 MG/DL (<200); CHOLESTEROL RISK RATIO 4.03 (<5); CREATININE FOR GFR 0.81 MG/DL (0.55-1.30); GLOMERULAR FILTRATION RATE > 60.0 (>51); GLUCOSE, FASTING 92 MG/DL (60-100); HDL CHOLESTEROL 48.1 MG/DL (>40); LDL CHOLESTEROL 101.1 MG/DL (<100); NON-HDL-C 146 MG/DL; POTASSIUM SERUM 4.4 MMOL/L (3.5-5.1); SODIUM LEVEL 142 MMOL/L (136-145); TRIGLYCERIDES LEVEL 224 MG/DL (<150)
== END ==
LOC: M WUC 10:22
PROVIDERS: ATTEND Internal Medicine
DX: E78.5 Hyperlipidemia, unspecified (principal)

== ENCOUNTER → 2023-02-26 | Outpatient (REF) | payer OTHER | LOC: M SFHCWAGY 13:02 | PROVIDERS: ATTEND Nurse Practitioner Family | DX: L90.0 Lichen sclerosus et atrophicus (principal) ==

== ENCOUNTER → 2023-03-18 | Outpatient (CLI) | payer OTHER | LOC: M WHC 07:39 | PROVIDERS: ATTEND Nurse Practitioner Family | DX: R10.2 Pelvic and perineal pain (principal) ==

== ENCOUNTER 2023-11-29 06:45 | Emergency (ER) | payer OTHER ==
[~2023-11-29] VITALS: Ht 165.1 cm; Wt 63.6 kg
[2023-11-29] MEDS ORDERED: ACETAMINOPHEN 500 MG TAB PO ONE (07:45)
[2023-11-29 07:58] LABS: RSV AMPLIFICATION NEGATIVE (NEGATIVE)
[2023-11-29 08:57] VITALS: BP 159/79; TEMP 99.9; O2SAT 95
== END 2023-11-29 08:59 | disposition home or self-care (01) ==
LOC: M ED 06:45
DX: J09.X2 Influenza due to identified novel influenza A virus with other respiratory manifestations (principal); J45.909 Unspecified asthma, uncomplicated; F41.9 Anxiety disorder, unspecified; I10 Essential (primary) hypertension; Z87.891 Personal history of nicotine dependence; Z91.011 Allergy to milk products; Z91.040 Latex allergy status

== ENCOUNTER → 2023-12-29 | Outpatient (CLI) | payer OTHER | LOC: M WHC 13:46 | PROVIDERS: ATTEND Internal Medicine | DX: Z12.31 Encounter for screening mammogram for malignant neoplasm of breast (principal) ==

== ENCOUNTER → 2024-02-03 | Outpatient (REF) | payer OTHER | LOC: M SFHCWAGY 13:48 | PROVIDERS: ATTEND Nurse Practitioner Family | DX: Z12.4 Encounter for screening for malignant neoplasm of cervix (principal); Z12.72 Encounter for screening for malignant neoplasm of vagina; Z77.9 Other contact with and (suspected) exposures hazardous to health; R87.610 Atypical squamous cells of undetermined significance on cytologic smear of cervix (ASC-US) ==

== ENCOUNTER 2024-05-06 22:39 | Emergency (ER) | payer OTHER ==
[~2024-05-06] VITALS: Ht 162.6 cm; Wt 69.0 kg
[2024-05-07] MEDS ORDERED: NAPR-837 PO (04:09)
[2024-05-07] MEDS: NAPROXEN 250 MG TAB PO ONE (04:30)
[2024-05-07 04:38] VITALS: BP 152/92; TEMP 98; O2SAT 99
== END 2024-05-07 04:41 | disposition home or self-care (01) ==
LOC: M ED 22:39
DX: M25.562 Pain in left knee (principal); E78.5 Hyperlipidemia, unspecified; I10 Essential (primary) hypertension; K21.9 Gastro-esophageal reflux disease without esophagitis; F41.1 Generalized anxiety disorder; F32.A Depression, unspecified; E73.9 Lactose intolerance, unspecified; Z91.040 Latex allergy status

== ENCOUNTER 2024-07-05 08:42 | Day surgery (SDC) | payer OTHER ==
[~2024-07-05] VITALS: Ht 162.6 cm; Wt 67.1 kg
[~2024-07-05 08:42] MED LIST changes: +ACET325C5 PO; +CARV6.25 PO; +CHLO125TA PO; +LEXA1TAB2 PO; +NS 1,000 ML IV ONE; +OMEP-173 PO
[2024-07-05] MEDS ORDERED: LIDOCAINE 2% 100MG/5ML SDV (FOR ANES.) As Ordered ONE (10:56)
[2024-07-05] MEDS ORDERED: fentaNYL 100 MCG/2 ML INJECTION As Ordered ONE (10:56)
[2024-07-05] MEDS ORDERED: propofoL 500 MG/50 ML VIAL As Ordered ONE (10:56)
[2024-07-05 11:26] VITALS: TEMP 97.7
[2024-07-05 11:53] VITALS: BP 141/61; O2SAT 99
== END 2024-07-05 12:20 | disposition home or self-care (01) ==
LOC: M OPP 08:42
PROVIDERS: ATTEND Internal Medicine Gastroenterology
DX: D12.5 Benign neoplasm of sigmoid colon (principal); K63.5 Polyp of colon; K64.8 Other hemorrhoids; R19.4 Change in bowel habit; K29.70 Gastritis, unspecified, without bleeding; K31.89 Other diseases of stomach and duodenum; K92.1 Melena; R10.9 Unspecified abdominal pain; Z79.02 Long term (current) use of antithrombotics/antiplatelets; Z79.1 Long term (current) use of non-steroidal anti-inflammatories (NSAID); Z79.899 Other long term (current) drug therapy; Z91.040 Latex allergy status; Z91.041 Radiographic dye allergy status
CPT/HCPCS: 43239; 45380; 88305; J3010

== ENCOUNTER → 2025-03-06 | Outpatient (CLI) | payer OTHER ==
[~2025-03-06] MED LIST changes: -NS 1,000 ML IV ONE
== END ==
LOC: M WUC 10:06
PROVIDERS: ATTEND Internal Medicine
DX: R05.3 Chronic cough (principal)

== ENCOUNTER → 2025-07-18 | Outpatient (CLI) | payer OTHER | LOC: M RAD 14:04 | PROVIDERS: ATTEND Internal Medicine | DX: L04.9 Acute lymphadenitis, unspecified (principal); E04.1 Nontoxic single thyroid nodule ==

== ENCOUNTER → 2025-07-28 | Outpatient (REF) | payer OTHER | LOC: M LAB REF 15:22 | PROVIDERS: ATTEND Surgery | DX: D17.23 Benign lipomatous neoplasm of skin and subcutaneous tissue of right leg (principal) ==

== ENCOUNTER → 2025-08-02 | Outpatient (CLI) | payer OTHER ==
[2025-08-02 14:54] LABS: FREE T4 1.15 NG/DL (0.89-1.76)
== END ==
LOC: M LAB 13:32
PROVIDERS: ATTEND Nurse Practitioner Family
DX: E04.1 Nontoxic single thyroid nodule (principal)

== ENCOUNTER 2025-08-23 16:19 | Emergency (ER) | payer OTHER ==
[~2025-08-23] VITALS: Ht 165.1 cm; Wt 74.1 kg
[2025-08-23 16:36] VITALS: TEMP 99.4
[2025-08-23] MEDS ORDERED: ISOVUE-370 76% 100 ML VIAL As Ordered ONE (17:02)
[2025-08-23] MEDS: ONDANSETRON 4MG 2ML VIAL IV ONE (17:06)
[2025-08-23] MEDS: MORPHINE 4 MG/ML 1 ML VIAL IV PRN (17:06)
[2025-08-23 18:16] VITALS: BP 167/83
[2025-08-23 18:31] VITALS: O2SAT 94
== END 2025-08-23 18:52 | disposition home or self-care (01) ==
LOC: EDBD 16:19 → M ED 16:19
DX: S06.0XAA Concussion with loss of consciousness status unknown, initial encounter (principal); S20.219A Contusion of unspecified front wall of thorax, initial encounter; T07.XXXA Unspecified multiple injuries, initial encounter; V43.52XA Car driver injured in collision with other type car in traffic accident, initial encounter; Y92.9 Unspecified place or not applicable; Y93.9 Activity, unspecified; Y99.9 Unspecified external cause status; M51.370 Other intervertebral disc degeneration, lumbosacral region with discogenic back pain only; M51.360 Other intervertebral disc degeneration, lumbar region with discogenic back pain only; M41.86 Other forms of scoliosis, lumbar region; M51.27 Other intervertebral disc displacement, lumbosacral region; I10 Essential (primary) hypertension; J45.909 Unspecified asthma, uncomplicated; E73.9 Lactose intolerance, unspecified; F41.9 Anxiety disorder, unspecified; F32.9 Major depressive disorder, single episode, unspecified; Z87.891 Personal history of nicotine dependence; Z79.899 Other long term (current) drug therapy; Z91.040 Latex allergy status
CPT/HCPCS: 70450; 71260; 72125; 72131; 73110; 73502; 73564; 73610; 74177; 80047; 93005; 96374; 96375; 99284; J2405; Q9967

== ENCOUNTER 2025-08-28 10:32 | Emergency (ER) | payer OTHER ==
[~2025-08-28] VITALS: Ht 165.1 cm; Wt 75.3 kg
[2025-08-28 13:21] LABS: BASO # 0.0 10^3/uL (0.0-0.2); BASO % 0.6 % (0.0-1.0); EOS # 0.1 10^3/uL (0.0-0.5); EOS % 2.3 % (0.0-3.0); LYMPH # 1.4 10^3/uL (1.5-5.0); LYMPH % 26.3 % (24.0-44.0); MONO # 0.5 10^3/uL (0.0-0.8); MONO % 10.0 % (2.0-8.0); NEUTROPHILS # 3.2 10^3/uL (1.5-8.5); NEUTROPHILS % 60.6 % (36.0-66.0); PLATELET COUNT, AUTOMATED 369 10^3/uL (150-450)
[2025-08-28] MEDS ORDERED: ISOVUE-370 76% 100 ML VIAL As Ordered ONE (13:39)
[2025-08-28 13:57] LABS: CPK CREATINE PHOSPHOKINASE 65 U/L (34-145)
[2025-08-28 13:58] LABS: ALT/SGPT 22 U/L (7.0-40); AST/SGOT 18 U/L (<34); CALCIUM LEVEL 9.5 MG/DL (8.3-10.6); CARBON DIOXIDE LEVEL 30 MMOL/L (20-31); CHLORIDE LEVEL 102 MMOL/L (98-107); CK-MB VALUE MASS < 1.0 NG/ML (<3.6); CREATININE FOR GFR 0.78 MG/DL (0.55-1.30); GLOMERULAR FILTRATION RATE 85.8 (>45); POTASSIUM SERUM 4.4 MMOL/L (3.5-5.1); SODIUM LEVEL 140 MMOL/L (136-145)
[2025-08-28 13:59] LABS: FREE T4 1.05 NG/DL (0.89-1.76)
[2025-08-28 15:21] LABS: CK-MB VALUE MASS < 1.0 NG/ML (<3.6)
[2025-08-28 15:23] LABS: CPK CREATINE PHOSPHOKINASE 70 U/L (34-145)
[2025-08-28 16:08] VITALS: BP 150/97; TEMP 97.7; O2SAT 95
== END 2025-08-28 16:13 | disposition home or self-care (01) ==
LOC: M ED 10:32
DX: S80.10XA Contusion of unspecified lower leg, initial encounter (principal); S20.01XA Contusion of right breast, initial encounter; R07.9 Chest pain, unspecified; V89.2XXS Person injured in unspecified motor-vehicle accident, traffic, sequela; K21.9 Gastro-esophageal reflux disease without esophagitis; M54.9 Dorsalgia, unspecified
CPT/HCPCS: 71275; 80047; 80048; 80076; 82550; 82553; 83880; 84439; 84443; 84484; 85025; 87486; 87581; 87633; 87798; 93005; 93041; 94760; 99284; Q9967

== ENCOUNTER → 2025-08-30 | Outpatient (CLI) | payer OTHER ==
[~2025-08-30] MED LIST changes: +ISOVUE-370 76% 100 ML VIAL ONE
== END ==
LOC: M PLAIMG 07:19
PROVIDERS: ATTEND Otolaryngology
DX: R13.10 Dysphagia, unspecified (principal); J34.2 Deviated nasal septum
CPT/HCPCS: 70491; Q9967

== ENCOUNTER → 2025-10-06 | Outpatient (CLI) | payer OTHER ==
[~2025-10-06] MED LIST changes: +E-Z-GAS II EFFERVESCENT PACKET (SODIUM BICARB./CITRIC ACID/SIMETHICONE) As Ordered ONE; +E-Z-HD 98% w/w 340 GM SUSP BTL As Ordered ONE; +E-Z-PAQUE 96% w/w SUSP 176 GM BTL As Ordered ONE; -ISOVUE-370 76% 100 ML VIAL ONE
== END ==
LOC: M RAD 07:48
PROVIDERS: ATTEND Otolaryngology
DX: R13.10 Dysphagia, unspecified (principal)

== ENCOUNTER → 2025-10-16 | Outpatient (CLI) | payer OTHER ==
[~2025-10-16] MED LIST changes: -E-Z-GAS II EFFERVESCENT PACKET (SODIUM BICARB./CITRIC ACID/SIMETHICONE) As Ordered ONE; -E-Z-HD 98% w/w 340 GM SUSP BTL As Ordered ONE; -E-Z-PAQUE 96% w/w SUSP 176 GM BTL As Ordered ONE
== END ==
LOC: M RAD 08:58
PROVIDERS: ATTEND Physical Medicine & Rehabilitation
DX: M79.602 Pain in left arm (principal)

== ENCOUNTER → 2025-10-23 | Outpatient (CLI) | payer OTHER ==
[~2025-10-23] MED LIST changes: +E-Z-GAS II EFFERVESCENT PACKET (SODIUM BICARB./CITRIC ACID/SIMETHICONE) As Ordered ONE; +E-Z-HD 98% w/w 340 GM SUSP BTL As Ordered ONE; +E-Z-PAQUE 96% w/w SUSP 176 GM BTL As Ordered ONE
== END ==
LOC: M RAD 10:29
PROVIDERS: ATTEND Otolaryngology
DX: R13.10 Dysphagia, unspecified (principal)

== ENCOUNTER 2025-11-01 11:12 | Observation (INO) | payer OTHER ==
[~2025-11-01] VITALS: Ht 165.1 cm; Wt 73.8 kg
[~2025-11-01 11:12] MED LIST changes: -E-Z-GAS II EFFERVESCENT PACKET (SODIUM BICARB./CITRIC ACID/SIMETHICONE) As Ordered ONE; -E-Z-HD 98% w/w 340 GM SUSP BTL As Ordered ONE; -E-Z-PAQUE 96% w/w SUSP 176 GM BTL As Ordered ONE
[2025-11-01] MEDS ORDERED: ISOVUE-370 76% 100 ML VIAL As Ordered ONE (11:49)
[2025-11-01 12:05] LABS: BASO # 0.0 10^3/uL (0.0-0.2); BASO % 0.6 % (0.0-1.0); EOS # 0.1 10^3/uL (0.0-0.5); EOS % 1.9 % (0.0-3.0); LYMPH # 1.7 10^3/uL (1.5-5.0); LYMPH % 32.5 % (24.0-44.0); MONO # 0.6 10^3/uL (0.0-0.8); MONO % 11.1 % (2.0-8.0); NEUTROPHILS # 2.9 10^3/uL (1.5-8.5); NEUTROPHILS % 53.7 % (36.0-66.0); PLATELET COUNT, AUTOMATED 311 10^3/uL (150-450)
[2025-11-01 12:34] LABS: INR 0.88
[2025-11-01] MEDS ORDERED: LORA-1164 PO (13:32)
[2025-11-01] MEDS ORDERED: APAP325T4 PO (13:32)
[2025-11-01] MEDS ORDERED: CYCL-707 PO (13:32)
[2025-11-01] MEDS ORDERED: CHLO125TA PO (13:32)
[2025-11-01] MEDS ORDERED: HOME MED LIST COMPLETE! XX SCH (13:35)
[2025-11-01] MEDS ORDERED: CYCLOBENZAPRINE 10 MG TABLET PO PRN (15:50)
[2025-11-01 16:25] LABS: CHOLESTEROL LEVEL 232.0 MG/DL (<200); CHOLESTEROL RISK RATIO 4.01 (<5); LDL CHOLESTEROL 138.6 MG/DL (<100); NON-HDL-C 174.2 MG/DL; TRIGLYCERIDES LEVEL 178.0 MG/DL (<150)
[2025-11-01 16:35] LABS: ESTIMATED AVERAGE GLUCOSE 120.0 MG/DL (60-110)
[2025-11-01] MEDS: ENOXAPARIN 40 MG/0.4 ML SYRINGE (J1650 PER 10MG) SC SCH (17:09)
[2025-11-01] MEDS: LORATADINE 10 MG TAB PO SCH (17:10)
[2025-11-01] MEDS: CHLORTHALIDONE 12.5 MG PER 1/2 TABLET PO SCH (17:11)
[2025-11-01] MEDS: ASPIRIN 81 MG ENTERIC TABLET PO SCH (18:37)
[2025-11-01] MEDS: CLOPIDOGREL 75 MG TAB PO SCH (18:37)
[2025-11-01] MEDS ORDERED: ATORVASTATIN 10 MG TAB PO SCH (21:00)
[2025-11-01 21:30] VITALS: BP 184/102; TEMP 97.7; O2SAT 97
[2025-11-01] MEDS: ATORVASTATIN 20 MG TAB PO SCH (21:59)
[2025-11-01] MEDS: OMEPRAZOLE 20MG CAP PO SCH (21:59)
[2025-11-01] MEDS: ESCITALOPRAM OXALATE 10 MG TABLET PO SCH (22:00)
[2025-11-02] VITALS: BP 145/83; TEMP 97.4; O2SAT 93
[2025-11-02 04:00] VITALS: BP 136/80; TEMP 98.5; O2SAT 91
[2025-11-02 07:54] VITALS: BP 139/88; TEMP 98.7; O2SAT 94
[2025-11-02 09:29] LABS: PLATELET COUNT, AUTOMATED 321 10^3/uL (150-450)
[2025-11-02 09:57] VITALS: BP 139/88
[2025-11-02] MEDS: ACETAMINOPHEN 325 MG TAB PO PRN (09:58)
[2025-11-02 09:59] LABS: CALCIUM LEVEL 9.4 MG/DL (8.3-10.6); CARBON DIOXIDE LEVEL 26.0 MMOL/L (20-31); CHLORIDE LEVEL 100.0 MMOL/L (98-107); CREATININE FOR GFR 0.77 MG/DL (0.55-1.30); GLOMERULAR FILTRATION RATE 87.2 (>45); POTASSIUM SERUM 4.2 MMOL/L (3.5-5.1); SODIUM LEVEL 137.0 MMOL/L (136-145)
[2025-11-02 12:00] VITALS: BP 130/76; TEMP 98.3; O2SAT 93
[2025-11-02] MEDS ORDERED: CLOP75TA2 PO (14:59)
[2025-11-02] MEDS ORDERED: ATOR80TA59 PO (14:59)
[2025-11-02] MEDS ORDERED: ASPI81TAEC PO (14:59)
== END 2025-11-02 16:03 | disposition home or self-care (01) ==
LOC: M ED 11:12 → M ED INP 11:13 → M MSPAV 20:47
PROVIDERS: ADMIT Student in an Organized Health Care Education/Training Program; ATTEND Student in an Organized Health Care Education/Training Program
DX: I63.81 Other cerebral infarction due to occlusion or stenosis of small artery (principal); Z66 Do not resuscitate; I10 Essential (primary) hypertension; E78.5 Hyperlipidemia, unspecified; G81.91 Hemiplegia, unspecified affecting right dominant side; Z79.899 Other long term (current) drug therapy; Z91.040 Latex allergy status; Z91.0110 Allergy to milk products, unspecified
CPT/HCPCS: 36415; 70450; 70496; 70498; 70551; 71045; 80047; 80048; 80061; 83036; 84443; 85025; 85027; 85610; 85730; 86850; 86900; 86901; 93005; 93041; 93306; 94760; 96372; 97116; 97161; 97165; 97530; 99285; J1650; Q9967